=== PATIENT | male | born 1995 | race Caucasian/White ===

== ENCOUNTER 2019-12-04 22:41 | Emergency (ER) | payer MEDICARE, MEDICAID ==
--- NOTE | 2019-12-04 22:56 | ED.PDOC ---
History of Present Illness - General Chief Complaint: Behavioral / Psych Stated Complaint: anxiety, insomnia, bipolar Time Seen by Provider: 12/04/19 22:45 - History of Present Illness Initial Comments: pt is here for med refill of psych meds. He hasn't slept well, multiple personal stressor. Prescriber is in [place] but he has an appt at [facility] here. Home Medications: Ambulatory Orders Conroy Carbonate 300 mg PO BID 15 Days #30 cap 12/04/19 Risperidone [Risperdal] 1 mg PO BEDTIME 15 Days #15 tab 12/04/19 Sertraline HCl 50 mg PO DAILY 15 Days #15 tab 12/04/19 Review of Systems - Review of Systems Constitutional: States: no symptoms reported EENTM: States: no symptoms reported Respiratory: States: no symptoms reported Cardiology: States: no symptoms reported Gastrointestinal/Abdominal: States: no symptoms reported Skin: States: no symptoms reported Neurological: States: anxiety, depressed, emotional problems Physical Exam - Physical Exam General Appearance: Alert, No apparent distress Eyes, Ears, Nose, Throat Exam: PERRL/EOMI, normal ENT inspection Neck: non-tender, full range of motion, supple, normal inspection Respiratory: lungs clear, normal breath sounds, no respiratory distress Cardiovascular/Chest: regular rate, rhythm, no gallop, no JVD, no murmur Extremities Exam: other - nl gait Neurological: alert, responds to pain, depressed affect, flat Appearance: appropriate appearance, appropriate insight, no memory impairment Behavior/Eye Contact/Speech: normal speech Thoughts/Hallucinations: normal thought pattern Departure - Departure Clinical Impression: Psychological disorder Time of Disposition: 23:01 Disposition: Discharge to Home or Self Care Condition: Good Departure Forms: ED Discharge - Pt. Copy, Patient Portal Self Enrollment Instructions: DI for Psychosis Prescriptions: Conroy Carbonate 300 mg PO BID 15 Days #30 cap Risperidone [Risperdal] 1 mg PO BEDTIME 15 Days #15 tab Sertraline HCl 50 mg PO DAILY 15 Days #15 tab Home Medications: Ambulatory Orders Conroy Carbonate 300 mg PO BID 15 Days #30 cap 12/04/19 Risperidone [Risperdal] 1 mg PO BEDTIME 15 Days #15 tab 12/04/19 Sertraline HCl 50 mg PO DAILY 15 Days #15 tab 12/04/19
[2019-12-04 23:06] VITALS: TEMP 97.1
[2019-12-04 23:19] VITALS: BP 134/84; O2SAT 98
== END 2019-12-04 23:19 | disposition home or self-care (01) ==
LOC: ER 22:41
DX: Z76.0 Encounter for issue of repeat prescription (principal); F31.9 Bipolar disorder, unspecified; Z79.899 Other long term (current) drug therapy